=== PATIENT | female | born 1960 | race Caucasian/White ===

== ENCOUNTER → 2020-04-20 15:37 | Outpatient (CLI) | payer OTHER | END | disposition home or self-care (01) | LOC: D.MAMMO 04-13 13:00 | PROVIDERS: ATTEND Family Medicine | DX: Z12.31 Encounter for screening mammogram for malignant neoplasm of breast (principal) ==

== ENCOUNTER 2020-05-27 15:35 | Emergency (ER) | payer OTHER ==
[~2020-05-27] VITALS: Ht 167.6 cm; Wt 77.3 kg
[2020-05-27 15:42] VITALS: Ht 167.6 cm; Wt 77.3 kg
[2020-05-27 16:33] LABS: BASOPHILS 0.2 % (0-2); EOSINOPHILS 0.9 % (0-7); HEMATOCRIT 46.2 % (36.0-48.0); HEMOGLOBIN 15.3 g/dL (12-16); IMMATURE GRANULOCYTES 0.2 % (0-5); LYMPHOCYTE ABS# 1.31 10x3/uL (1.18-3.74); LYMPHOCYTES 10.8 % (15-50); MCH 30.3 pg (26.0-34.0); MCHC 33.1 g/dL (31.0-37.0); MCV 91.5 fL (80.0-100.0); MEAN PLATELET VOLUME 11.3 fL (7.4-10.4); MONOCYTES 6.9 % (2-11); NEUTROPHIL ABS# 9.85 10x3/uL (1.56-6.13); PLATELET COUNT 193 10x3/uL (130-400); RBC 5.05 10x6/uL (4.00-5.40); RDW 12.6 % (11.5-14.5); WBC 12.2 10x3/uL (4.8-10.8)
[2020-05-27] MEDS ORDERED: FLAGYL500 MG PO (16:36)
[2020-05-27 16:42] LABS: BILIRUBIN NEGATIVE (NEGATIVE); KETONE NEGATIVE (NEGATIVE); NITRITE NEGATIVE (NEGATIVE); UROBILINOGEN NORMAL mg/dL (< 2)
[2020-05-27 16:43] LABS: BACTERIA FEW HPF (NONE SEEN); SQUAMOUS EPITHELIAL 0-5 HPF (0-4); WHITE CELLS - URINE 0-5 HPF (0-4)
[2020-05-27 16:44] LABS: ANION GAP 10.9 mmol/L (8-16); CALCIUM 8.6 mg/dL (8.5-10.1); CARBON DIOXIDE 31.6 mmol/L (21.0-32.0); CREATININE - SERUM 1.1 mg/dL (0.6-1.3); POTASSIUM - SERUM 3.5 mmol/L (3.5-5.1)
[2020-05-27 16:51] LABS: ALBUMIN 3.9 g/dL (3.4-5.0); BILIRUBIN - TOTAL 0.67 mg/dL (0.2-1.3)
[2020-05-27 17:08] LABS: UDS - AMPHET NEGATIVE QUAL (NEGATIVE); UDS - BARB NEGATIVE QUAL (NEGATIVE); UDS - BENZO NEGATIVE QUAL (NEGATIVE); UDS - COCAINE NEGATIVE QUAL (NEGATIVE); UDS - OPIATE NEGATIVE QUAL (NEGATIVE); UDS - PCP NEGATIVE QUAL (NEGATIVE); UDS - THC NEGATIVE QUAL (NEGATIVE)
[2020-05-27 17:32] VITALS: BP 111/74
[2020-05-30 15:15] VITALS: Ht 167.6 cm; Wt 77.3 kg
== END 2020-05-27 17:33 | disposition home or self-care (01) ==
LOC: D.ER 15:35
PROVIDERS: Family Medicine
DX: R22.1 Localized swelling, mass and lump, neck (principal); T36.8X5A Adverse effect of other systemic antibiotics, initial encounter

== ENCOUNTER 2020-05-28 12:25 | Inpatient (IN) | payer OTHER ==
[~2020-05-28] VITALS: Ht 167.6 cm; Wt 83.0 kg
[~2020-05-28 12:25] MED LIST: FLAGYL500 MG PO
[2020-05-28 13:44] LABS: BASOPHILS 0 % (0-2); EOSINOPHILS 0 % (0-7); HEMATOCRIT 44.5 % (36.0-48.0); HEMOGLOBIN 14.7 g/dL (12-16); IMMATURE GRANULOCYTES 0.4 % (0-5); LYMPHOCYTES 4.9 % (15-50); MCH 29.7 pg (26.0-34.0); MCV 89.9 fL (80.0-100.0); MEAN PLATELET VOLUME 11.2 fL (7.4-10.4); MONOCYTES 3.2 % (2-11); NEUTROPHILS 91.5 % (40-80); PLATELET COUNT 223 10x3/uL (130-400); RBC 4.95 10x6/uL (4.00-5.40); RDW 12.6 % (11.5-14.5)
[2020-05-28 13:47] LABS: WBC 16.3 10x3/uL (4.8-10.8)
[2020-05-28 13:55] LABS: ANION GAP 14.9 mmol/L (8-16); CALCIUM 9.1 mg/dL (8.5-10.1); CARBON DIOXIDE 26.8 mmol/L (21.0-32.0); CREATININE - SERUM 1.2 mg/dL (0.6-1.3); POTASSIUM - SERUM 3.7 mmol/L (3.5-5.1)
[2020-05-28 14:02] LABS: ALBUMIN 3.7 g/dL (3.4-5.0); BILIRUBIN - TOTAL 0.32 mg/dL (0.2-1.3); PROTEIN - SERUM 7.8 g/dL (6.4-8.2)
[2020-05-28 14:59] LABS: BILIRUBIN NEGATIVE (NEGATIVE); KETONE NEGATIVE (NEGATIVE); NITRITE NEGATIVE (NEGATIVE); UROBILINOGEN NORMAL mg/dL (< 2)
[2020-05-28 15:07] LABS: UDS - AMPHET NEGATIVE QUAL (NEGATIVE); UDS - BARB NEGATIVE QUAL (NEGATIVE); UDS - BENZO NEGATIVE QUAL (NEGATIVE); UDS - COCAINE NEGATIVE QUAL (NEGATIVE); UDS - OPIATE NEGATIVE QUAL (NEGATIVE); UDS - PCP NEGATIVE QUAL (NEGATIVE); UDS - THC NEGATIVE QUAL (NEGATIVE)
[2020-05-28 15:09] LABS: WHITE CELLS - URINE 0-5 HPF (0-4)
[2020-05-28 15:10] LABS: BACTERIA FEW HPF (NONE SEEN); SQUAMOUS EPITHELIAL 0-5 HPF (0-4)
--- NOTE | 2020-05-28 19:30 | NUR ---
PT RESTING IN BED, EATING DINNER BROUGHT BY PT SPOUSE. DENIES PAIN OR COMPLAINTS. 20G PIV SL TO R WRIST, ASSESSED AND IS PATENT. PT ON ROOM AIR AND GAIT IS EVEN AND STEADY. DISCUSSED USE OF CALL LIGHT FOR ANY NEEDS OR ASSISTANCE, PT AGREED. WILL CONT TO MONITOR.
[2020-05-28 20:00] VITALS: BP 112/73
[2020-05-29] VITALS: BP 112/58
--- NOTE | 2020-05-29 02:14 | NUR ---
ATTEMPTED TO GIVE PT ORDERED STERIOD TREATMENT, PT DECLINED MEDICATION, REPORTED THAT SHE HAD IM STERIOD WITHIN LAST 12 HRS, EDUCATED PT ON REASON FOR PERSCRIBED MEDICATION, PT REPORTS SHE "FEELS JITTERY" AND IS HAVING DIFFICULTY SLEEPING, EDUCATED THAT THAT IS A NORMAL SIDE EFFECT OF STERIOD TREATMENT, PT CONTINUES TO DECLINE, ADVISED PT TO DISCUSS MEDICATION WITH MD UPON ROUNDING, PT AGREED.
[2020-05-29 04:00] VITALS: BP 129/77
[2020-05-29 05:31] LABS: BASOPHILS 0.1 % (0-2); EOSINOPHILS 0.1 % (0-7); HEMATOCRIT 44.2 % (36.0-48.0); HEMOGLOBIN 14.5 g/dL (12-16); IMMATURE GRANULOCYTES 0.4 % (0-5); LYMPHOCYTE ABS# 0.87 10x3/uL (1.18-3.74); LYMPHOCYTES 4.7 % (15-50); MCH 29.8 pg (26.0-34.0); MCHC 32.8 g/dL (31.0-37.0); MCV 90.9 fL (80.0-100.0); MEAN PLATELET VOLUME 11.5 fL (7.4-10.4); NEUTROPHIL ABS# 16.63 10x3/uL (1.56-6.13); NEUTROPHILS 89.7 % (40-80); PLATELET COUNT 251 10x3/uL (130-400); RBC 4.86 10x6/uL (4.00-5.40); RDW 12.5 % (11.5-14.5); WBC 18.5 10x3/uL (4.8-10.8)
[2020-05-29 05:50] LABS: ALBUMIN 3.4 g/dL (3.4-5.0); ANION GAP 12.9 mmol/L (8-16); BILIRUBIN - TOTAL 0.25 mg/dL (0.2-1.3); CALCIUM 9.1 mg/dL (8.5-10.1); CARBON DIOXIDE 26.9 mmol/L (21.0-32.0); CREATININE - SERUM 1.1 mg/dL (0.6-1.3); MAGNESIUM - SERUM 2.5 mg/dL (1.8-2.4); PHOSPHOROUS 2.8 mg/dL (2.5-4.9); POTASSIUM - SERUM 3.8 mmol/L (3.5-5.1); PROTEIN - SERUM 7.2 g/dL (6.4-8.2)
[2020-05-29 10:07] VITALS: BP 147/66
--- NOTE | 2020-05-29 12:56 | NUR ---
PT WAS HAVING SOME TIGHTNESS AND ITCHING IN HER MOUTH THIS MORNING AFTER IV FLAGYL, ANDMINISTERED BENADRYL, NEW ORDER FOR LEVOFLOXACIN STARTED AT 1130, AT 1245 PT CALLED STATING THAT IV SITE WAS RED AND ITCHING, UPON ASSESSMENT IV SITE WAS RED, PT COMPLAINED OF ITCHING UP HER ARM JUST BELOW THE SHOULDER, ANTIBIOTIC STOPPED, IV FLUSHED, SALINE LOCKED, WILL RECHECK IN 30 MIN TO SEE IF STARTING TO RESOLVE, EDUCATED PT ABOUT ANAPHYLAXSIS AND WHEN TO CALL FOR HELP
--- NOTE | 2020-05-29 13:16 | NUR ---
ITCHING SEEMS TO BE RESOLVING, REDNESS STILL AT IV SITE AND AT THE BEND OF THE ELBOW, PT DOES NOT REPORT SOB OR THROAT SWELLING
[2020-05-29 14:15] VITALS: BP 122/69
[2020-05-29 18:03] VITALS: BP 117/66
[2020-05-29 20:00] VITALS: BP 133/84
[2020-05-30 05:58] LABS: BASOPHILS 0 % (0-2); EOSINOPHILS 0.1 % (0-7); HEMATOCRIT 40.1 % (36.0-48.0); IMMATURE GRANULOCYTES 0.4 % (0-5); LYMPHOCYTE ABS# 1.18 10x3/uL (1.18-3.74); LYMPHOCYTES 10.7 % (15-50); MCHC 32.4 g/dL (31.0-37.0); MCV 92.4 fL (80.0-100.0); MEAN PLATELET VOLUME 11.7 fL (7.4-10.4); MONOCYTES 5.3 % (2-11); NEUTROPHIL ABS# 9.23 10x3/uL (1.56-6.13); NEUTROPHILS 83.5 % (40-80); PLATELET COUNT 211 10x3/uL (130-400); RBC 4.34 10x6/uL (4.00-5.40); RDW 12.7 % (11.5-14.5)
[2020-05-30 06:31] LABS: ALBUMIN 2.8 g/dL (3.4-5.0); ANION GAP 11.7 mmol/L (8-16); BILIRUBIN - TOTAL 0.15 mg/dL (0.2-1.3); CALCIUM 8.3 mg/dL (8.5-10.1); CARBON DIOXIDE 28.8 mmol/L (21.0-32.0); CREATININE - SERUM 1.1 mg/dL (0.6-1.3); MAGNESIUM - SERUM 2.3 mg/dL (1.8-2.4); PHOSPHOROUS 3.8 mg/dL (2.5-4.9); POTASSIUM - SERUM 3.5 mmol/L (3.5-5.1)
[2020-05-30 08:35] VITALS: BP 109/72
[2020-05-30 12:52] VITALS: BP 117/72
[2020-05-30 15:15] VITALS: Ht 167.6 cm; Wt 83.0 kg
[2020-05-30 17:23] VITALS: BP 144/78
--- NOTE | 2020-05-30 19:48 | NUR ---
0700 AWAKE ALERT AMBULATING IN ROOM VOIDS WITHOUT DIFFICULTY
--- NOTE | 2020-05-30 19:49 | NUR ---
1300 IV OUT WAITED UNTIL SHE SHOWERED AND RESTART IV TO LEFT FOREARM WITH 20 GAUGE NEEDLE
[2020-05-30 20:00] VITALS: BP 126/91
--- NOTE | 2020-05-30 20:48 | NUR ---
ADMINISTERED MEDICATION, NO DIFFICULTIES. UPRIGHT IN BED. FAMILY AT BEDSIDE. DENIES ANY NEEDS AT THIS TIME. BED IN LOWEST POSITION, BED RAILS X2, CALL LIGHT WITHIN REACH. WILL CONTINUE POC.
--- NOTE | 2020-05-30 23:07 | NUR ---
HUNG IV ABX TOLERATING WELL. ADMINISTERED IV BENADRYL BEFORE DUE TO ALLERGIES TO ANTIBIOTICS. RESTING COMFORTABLY IN BED. DENIES FURTHER NEEDS AT THIS TIME. WILL CONTINUE POC.
[2020-05-31 04:00] VITALS: BP 128/68
[2020-05-31 06:18] LABS: BASOPHILS 0.1 % (0-2); EOSINOPHILS 0 % (0-7); HEMATOCRIT 41.6 % (36.0-48.0); HEMOGLOBIN 13.5 g/dL (12-16); LYMPHOCYTE ABS# 0.94 10x3/uL (1.18-3.74); LYMPHOCYTES 9.3 % (15-50); MCH 29.7 pg (26.0-34.0); MCHC 32.5 g/dL (31.0-37.0); MCV 91.6 fL (80.0-100.0); MEAN PLATELET VOLUME 11.6 fL (7.4-10.4); NEUTROPHIL ABS# 8.57 10x3/uL (1.56-6.13); NEUTROPHILS 84.6 % (40-80); PLATELET COUNT 202 10x3/uL (130-400); RBC 4.54 10x6/uL (4.00-5.40); RDW 12.7 % (11.5-14.5); WBC 10.1 10x3/uL (4.8-10.8)
[2020-05-31 06:35] LABS: ALBUMIN 2.9 g/dL (3.4-5.0); BILIRUBIN - TOTAL 0.19 mg/dL (0.2-1.3); CALCIUM 8.2 mg/dL (8.5-10.1); CARBON DIOXIDE 29.2 mmol/L (21.0-32.0); CREATININE - SERUM 1.1 mg/dL (0.6-1.3); MAGNESIUM - SERUM 2.3 mg/dL (1.8-2.4); PHOSPHOROUS 3.9 mg/dL (2.5-4.9); PROTEIN - SERUM 6.1 g/dL (6.4-8.2)
[2020-05-31 06:40] LABS: ANION GAP 12.1 mmol/L (8-16); POTASSIUM - SERUM 4.3 mmol/L (3.5-5.1)
--- NOTE | 2020-05-31 07:00 | NUR ---
0700 BEDSIDE REPORT RECEIVED AWAKE ALERT REMAINS ON ENTERIC ISOLATION PRECAUTIONS
[2020-05-31 08:52] VITALS: BP 148/67
[2020-05-31 13:07] VITALS: BP 116/68
[2020-05-31] MEDS ORDERED: LEVAQUIN750 MG PO (13:41)
[2020-05-31] MEDS ORDERED: FLAGYL500 MG PO (13:42)
[2020-05-31] MEDS ORDERED: PREDNISONE10 MG PO (13:44)
--- NOTE | 2020-05-31 16:40 | MORECARE ---
CASE MANAGEMENT DISCHARGE SUMMARY PATIENT: TRAVIS DERAS UNIT: [id number] ADM DATE: 05/28/20 AGE: 59 : 60 SEX: F ROOM/BED: D.2229 AUTHOR: DOUG VALLADARES PHYSICIAN: REFERRING PHYSICIAN: YAJAIRA KENDALL MD DATE OF SERVICE: 05/31/20 Case Management Discharge Planning Summary DCP REVIEW SUMMARY ANTICIPATED D/C DATE: EXPECTED LOS : CASE STATUS: DCP Initiated INITIAL REVIEW: 05/28/2020 INITIAL REVIEWER: Geovanna Mercer FINAL DISCHARGE DISPOSITION: : FINAL REVIEWER: FINAL REVIEW DATE: DCP [employer] Questions & Answers QUESTION: ANSWER : PATIENT: TRAVIS DERAS ENCOUNTER: [id number] MEDICAL RECORD#: [id number] ADMISSION DATE: 05/28/2020 DISCHARGE DATE: ATTENDING MD: YAJAIRA LOAIZA : AGE: 59 MARITAL STATUS: M DC PLAN ID: [id number] FACILITY: [facility] PRINTED ON: 05/31/20 16:39 CT All edits/amendments must be made on the electronic document DICTATION DATE: 05/31/20 163 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
--- NOTE | 2020-05-31 16:51 | MORECARE ---
CASE MANAGEMENT DISCHARGE SUMMARY PATIENT: TRAVIS DERAS UNIT: [id number] ADM DATE: 05/28/20 AGE: 59 : 60 SEX: F ROOM/BED: D.2229 AUTHOR: BLAINE,DOC PHYSICIAN: REFERRING PHYSICIAN: YAJAIRA KENDALL MD DATE OF SERVICE: 05/31/20 Case Management Discharge Planning Summary COMMENTS ENTERED DATE: 05/31/20 16:39 CT COMMENT TYPE: Discharge Planning REVIEWER: Geovanna Mercer CM met with patient at bedside after obtaining verbal consent. CM discussed availability / needs of home health, REHAB and medical equipment. PCP is Dr. East and she uses [facility] for pharmacy. Denies need for dme or home health. IMM signed and copy on chart. CM to follow and assist is needed. DCP REVIEW SUMMARY ANTICIPATED D/C DATE: EXPECTED LOS : CASE STATUS: DCP Initiated INITIAL REVIEW: 05/28/2020 INITIAL REVIEWER: Geovanna Mercer FINAL DISCHARGE DISPOSITION: : FINAL REVIEWER: FINAL REVIEW DATE: DCP [employer] Questions & Answers QUESTION: ANSWER : PATIENT: TRAVIS DERAS ENCOUNTER: [id number] MEDICAL RECORD#: [id number] ADMISSION DATE: 05/28/2020 DISCHARGE DATE: ATTENDING MD: YAJAIRA LOAIZA : AGE: 59 MARITAL STATUS: M DC PLAN ID: [id number] FACILITY: [facility] PRINTED ON: 05/31/20 16:51 CT All edits/amendments must be made on the electronic document DICTATION DATE: 05/31/201650 STRIPER: THANG 05/31/201650 RPT#: [id number] DC DATE: STATUS: ADM IN [facility] [address] [place] [address] END OF REPORT
--- NOTE | 2020-05-31 16:58 | NUR ---
1555 IV D/C WRITTEN AND VERBAL DISCHARGE INSTRUCTION GIVEN VERBALIZED UNDERSTANDING TRANSPORTED VIA WC TO CAR TO RIDE HOME WITH FAMILY
== END 2020-05-31 16:40 | disposition home or self-care (01) | DRG 373 ==
LOC: D.ER 12:25 → D.MS 16:28
PROVIDERS: Family Medicine; ADMIT Family Medicine; ATTEND Family Medicine
DX: A04.72 Enterocolitis due to Clostridium difficile, not specified as recurrent (principal); R10.13 Epigastric pain; T37.3X5A Adverse effect of other antiprotozoal drugs, initial encounter; E04.1 Nontoxic single thyroid nodule

== ENCOUNTER → 2020-06-15 08:47 | Outpatient (CLI) | payer OTHER ==
[2020-05-30 15:15] VITALS: BMI 29.5
[~2020-06-15 08:47] MED LIST changes: +LEVAQUIN750 MG PO; +PREDNISONE10 MG PO
== END | disposition home or self-care (01) ==
LOC: D.US 08:47
PROVIDERS: ATTEND Family Medicine
DX: E04.1 Nontoxic single thyroid nodule (principal)

== ENCOUNTER → 2020-07-07 07:51 | Outpatient (CLI) | payer OTHER ==
[2020-05-30 15:15] VITALS: BMI 29.5
== END | disposition home or self-care (01) ==
LOC: D.RAD 07:51
PROVIDERS: ATTEND Family Medicine
DX: R13.10 Dysphagia, unspecified (principal)